=== PATIENT | female | born 1930 | race Caucasian/White ===

== ENCOUNTER 2017-07-21 15:09 | Inpatient (IN) | payer OTHER ==
[2017-07-21] MEDS ORDERED: HYDROmorphONE/DILAUDID 1 MG/ML INJ ONE (15:41)
--- NOTE | 2017-07-21 15:43 | EDPHY ---
H & P Stated Complaint: Fall, L arm deformity Time Seen by Provider: 07/21/17 15:43 - Personal History Current Tetanus/Diphtheria Vaccine: Unsure Current Tetanus Diphtheria and Acellular Pertussis (TDAP): Unsure - Medical/Surgical History Hx Asthma: No Hx Chronic Respiratory Disease: No Hx Diabetes: No Hx Cardiac Disease: No Hx Renal Disease: No Hx Cirrhosis: No Hx Alcoholism: No Hx HIV/AIDS: No Hx Splenectomy or Spleen Trauma: No Other PMH: dementia, high cholesterol - Social History Smoking Status: Never smoked Constitutional: Initial Vital Signs Temperature (C) 36.7 C 07/21/17 15:09 Heart Rate 72 07/21/17 15:09 Respiratory Rate 16 07/21/17 15:09 Blood Pressure 120/73 07/21/17 15:09 O2 Sat (%) 94 07/21/17 15:09 O2 Delivery Mode [Post Non-Rebreather Mask Procedure 2nd] O2 Delivery Mode [Post Non-Rebreather Mask Procedure 1st] O2 Delivery Mode [Procedural Non-Rebreather Mask 2nd] O2 Delivery Mode [Procedural Non-Rebreather Mask 1st] O2 Delivery Mode Room Air O2 (L/minute) [Post Procedure 15 2nd] O2 (L/minute) [Post Procedure 15 1st] O2 (L/minute) [Procedural 2nd] 15 Allergies/Adverse Reactions: No Known Allergies Allergy (Verified 07/21/17 15:19) Home Medications: Medication Instructions Recorded Donepezil HCl 07/21/17 Mirtazapine 07/21/17 Namenda 10 mg 07/21/17 Simvastatin 07/21/17 Zoloft 100mg (*) 07/21/17 Medical Decision Making - Diagnostics Imaging Results: Imaging Impressions Elbow X-Ray 07/21/17 15:52 Impression: Acute intra-articular minimally angulated and displaced distal humerus supracondylar fracture. Hip X-Ray 07/21/17 15:52 Impression: Suspect acute nondisplaced left superior pubic ramus fracture. Comment: Results discussed with Dr. Jalen Zamora. Pelvis CT 07/21/17 16:31 Impression: 1. Nondisplaced fracture of the superior and inferior pubic ramus adjacent to the symphysis on the left. 2. Adjacent hematoma extends into the soft tissues superior to the fractures causing mild compression along the left anterior wall of the bladder. 3. Extensive uncomplicated diverticulosis of the sigmoid colon. Findings discussed with Jalen Zamora MD at 17:04 hour, 07/21/2017. Imaging: Discussed imaging studies w/ call box wirer Radiologist, I viewed and interpreted images myself ED Course/Re-evaluation: CHIEF COMPLAINT: Left arm and left hip injury HISTORY OF PRESENT ILLNESS: The patient is a 86 y/o female with a history of Alzheimer's disease arriving via EMS complaining of severe left elbow and left hip pain secondary to a fall this afternoon. Her daughter at bedside states her hand was underneath a cabinet when she fell. Her hand was stuck under the cabinet as she fell, causing her elbow to twist. She had immediate pain in her left elbow and left hip. Daughter denies head strike or loss of consciousness. No weakness or paresthesias. EMS administered 100mcg IV Fentanyl en route without control of her pain. No anticoagulants. REVIEW OF SYSTEMS: A 10 point review of systems was performed and is negative with the exception of the elements mentioned in the history of present illness. PHYSICAL EXAM: HR, BP, O2 Sat, RR. Temp noted General Appearance: Alert, well hydrated, appropriate, and extremely uncomfortable appearing. Head: Atraumatic without scalp tenderness or obvious injury Eyes: Pupils equal, round, reactive to light and accommodation, EOMI, no trauma , no injection. Ears: Clear bilaterally, no perforation, normal landmarks Nose: Atraumatic, no rhinorrhea, clear. Throat: Mucus membranes moist. Neck: Supple, nontender, no lymphadenopathy. Respiratory: No retractions, no distress, no wheezes, and no accessory muscle use. Lungs are clear to auscultation bilaterally. Cardiovascular: Regular rate and rhythm, no murmurs, rubs, or gallops. Strong left radial pulse. Good capillary refill all extremities. Gastrointestinal: Abdomen is soft, nontender, non-distended, no masses, no rebound, no guarding, no peritoneal signs. Musculoskeletal: Left elbow deformity and severe pain with any ROM, pain with ROM of left hip, pelvis stable without crepitus, no shortening or rotation of leg. Neurological: Alert, appropriate, and interactive. The patient has non-focal cranial nerves, motor, sensory, and cerebellar exam. Skin: No rashes, good turgor, no nodules on palpation. Past medical history: Alzheimer's disease, high cholesterol Past surgical history: Noncontributory Family history: Noncontributory Social history: Lives in [place], here through next Thursday. Daughter at bedside. DIAGNOSTICS/PROCEDURES/CRITICAL CARE TIME: 1644: Procedure: Conscious sedation. Indication: Elbow dislocation reduction The patient is an appropriate candidate to tolerate procedural sedation. The patient's vitals signs and mental status are appropriate. The risks, benefits and alternatives of the sedation were discussed with the patient and daughter. The patient is ASA classification 1. The patient's Mallampati airway score was 1 and the patient did meet the 3-3-2 airway measurements. A time out was completed. The patient was sedated with 40mg IV Dilaudid and 40mg IV Propofol. The patient was monitored with continuous pulse oximetry, clinical appeals specialist and end tidal CO2. There were no complications and no significant hypoxemia. I performed both the sedation and the procedure. The total time I spent at the bedside during the procedural sedation was 20 minutes. The patient was examined after the procedural sedation and has returned to their pre-sedation baseline with normal vital signs and a normal examination. Procedure: Reduction of dislocated elbow fracture Time-out completed immediately before the procedure. IV established. O2 administered. Placed on pulse oximeter and ETCO2 monitor. Neurovascular exam intact pre-procedure. Given 1mg IV Dilaudid, 40mg IV Ketamine, and 40mg IV Propofol for pain and sedation. The left elbow fracture dislocation was reduced using traction and internal rotation. Reassessed post-procedure. Neurovascular status intact-Normal Motor and sensory exam. Exam indicated reduction. Confirmed reduction on X-ray. Splint applied by tech. The procedure was performed by myself, Dr. Zamora. Postreduction left elbow x-ray: displaced angulated distal humerus supracondylar fracture. Pelvis x-ray: possible superior pubic rami fracture Pelvis CT: nondisplaced superior pubic rami fracture DIFFERENTIAL DIAGNOSIS: The differential diagnosis for the patient's trauma included but was not limited to intracranial injury, long bone and pelvic bone fractures, spinal injury, intra-abdominal injury, and intra-thoracic injury. MEDICAL DECISION MAKING: This is an 86 y/o female with a history of dementia who presents with left elbow fracture dislocation and left hip pain secondary to fall. 1mg IV Dilaudid administered immediately for pain. Due to severe pain and obvious dislocation on exam, I procedurally sedated and reduced dislocation prior to imaging. Patient is much more comfortable after relocation, splinting, and pain medication. She remains neurovascularly intact. Pelvis x-ray and subsequent CT confirm nondisplaced superior pubic rami fracture. She is due to fly home to [place] soon, but unfortunately she is unable to use a walker due to the elbow fracture and unable to walk due to the pelvic fracture. Discussed options with the patient and her daughter and they have opted for admission here. 1745: Consulted with Dr. Holguin, surgeon. He accepts admission and requests orthopedic and hospitalists consults as well. Spoke with hospitalist service. Dr. Joseph will consult on patient as needed. Spoke with Dr. Rosenberg, orthopedist. He will consult on patient during admission as needed. - Data Points Medications Given: Discontinued Medications Hydromorphone HCl (Dilaudid) 1 mg IVP EDNOW ONE Stop: 07/21/17 15:46 Last Admin: 07/21/17 15:45 Dose: 1 mg Ketamine HCl (Ketamine) 40 mg IVP EDNOW ONE Stop: 07/21/17 15:54 Last Admin: 07/21/17 15:53 Dose: 40 mg Propofol (Diprivan) 40 mg IVP EDNOW ONE Stop: 07/21/17 15:54 Last Admin: 07/21/17 15:53 Dose: 40 mg Departure - Departure Disposition: [facility] Inpatient Acute Clinical Impression: Fracture of superior pubic ramus Qualifiers: Encounter type: initial encounter Fracture type: closed Laterality: left Qualified Code(s): S32.512A - Fracture of superior rim of left pubis, initial encounter for closed fracture Supracondylar fracture of humerus Qualifiers: Encounter type: initial encounter Fracture type: closed Laterality: left Qualified Code(s): S42.412A - Displaced simple supracondylar fracture without intercondylar fracture of left humerus, initial encounter for closed fracture Condition: Fair Report Scribed for: Jalen Zamora Report Scribed by: Meena Pena Date of Report: 07/21/17 Time of Report: 16:36
[2017-07-21] MEDS ORDERED: HYDROmorphONE/DILAUDID 1 MG/ML INJ IVP ONE (15:45)
[2017-07-21] MEDS ORDERED: PROPOFOL 200 MG/20 ML VIAL ONE (15:50)
[2017-07-21] MEDS ORDERED: KETAMINE 100 MG/10 ML SYR IVP ONE (15:53)
[2017-07-21] MEDS ORDERED: PROPOFOL 200 MG/20 ML VIAL IVP ONE (15:53)
[2017-07-21] MEDS ORDERED: KETAMINE 500 MG/10 ML VIAL ONE (19:19)
[2017-07-21] MEDS ORDERED: ACETAMINOPHEN 325 MG TAB PO PRN (20:12)
[2017-07-21] MEDS ORDERED: ONDANSETRON 4 MG/2 ML VIAL IVP PRN (20:12)
[2017-07-21] MEDS ORDERED: HYDROCODONE/APAP 5/325 TAB PO PRN (20:12)
--- NOTE | 2017-07-21 20:53 | GHP ---
[f rep st] PREOP HISTORY AND PHYSICAL DATE OF ADMISSION: 07/21/2017 CHIEF COMPLAINT: Mechanical fall. HISTORY OF PRESENT ILLNESS: This is a very pleasant 86-year-old female with fairly advanced dementia who was shopping earlier at [employer] with her daughter. It appears that it was witness ed, but the patient turned and tripped, and sustained a mechanical fall from standing. She fell most ly on her left side from what it appears. She did strike her head and subsequently was brought to [facility] emergency department by EMS. In the emergency department, the patient complained of left upper ext remity pain; however, she was protecting her airway. Her breathing was intact, and she has adequate circulation. She subsequently had imaging including a left elbow x-ray, hip x-ray, and a pelvis CT a nd the above injuries were identified including a left acute intra-articular minimally angulated and displaced distal humerus supracondylar fracture. A pelvic CT and hip x-ray which shows a nondisplace d fracture of the superior and inferior pubic rami adjacent to the symphysis on the left, as well as an adjacent hematoma that extends into the soft tissues superior to the fractures causing mild compre ssion along the bladder. She also has diverticulosis, which was noted. At any rate, the patient was attempted to ambulate, and she had significant pain and subsequently warrants admission for pain con trol. On my examination, the patient other than complaining of left extra upper extremity pain is alert and oriented x1. It is unclear as to the mechanism and/or events that led to her injuries and states th at she otherwise feels well. She denies having fevers or chills. She describes the pain as achy and is really unable to characterize it any further than that. PAST MEDICAL HISTORY: Alzheimer dementia, as well as hyperlipidemia. PAST SURGICAL HISTORY: She had a colectomy in the past for diverticular disease, per her daughter's report. FAMILY HISTORY: Noncontributory. SOCIAL HISTORY: She lives with her daughter who has a home both here and in [place]. The daughter d enies any illicit drug use. REVIEW OF SYSTEMS: A full 10-point review was performed and unless stated above, is otherwise negati ve. PHYSICAL EXAMINATION: VITAL SIGNS: Blood pressure 100/60, temperature 36.7, heart rate 75, and she is 94% on 2 L nasal cannula. CONSTITUTIONAL: She is in no apparent distress and appears comfortable . EYES: Her pupils are equal, round, and reactive to light and accommodation. She has anicteric sc lerae and her extraocular movements are intact. EARS, NOSE, MOUTH, AND THROAT: She has moist mucous membranes. Her hearing appears normal. Her ears are normal, and she has no oral mucosal ulcers. C ARDIOVASCULAR: She has a regular rate and rhythm without any murmurs. RESPIRATORY: She has no resp iratory distress. No rales or rhonchi, and she is otherwise clear to auscultation. GI: She has nor moactive bowel sounds. ABDOMEN: Soft, nondistended, nontender. SKIN: Warm. She has an abrasion above her left eye, as well as on her left hand. It is normal colo r without any rashes. MUSCULOSKELETAL: She has full muscle strength. No muscle tenderness, and nor mal joint range of motion. NEUROLOGIC: She is alert and oriented x1, but globally confused. Crania l nerves 2-12 appear intact. She has no weakness or numbness. PSYCHIATRIC: She is interacting appr opriately. She does not appear anxious. She is not encephalopathic, but again fairly confused to th e entire situation which appears to be her baseline per her daughter's report. LYMPH, HEME, IMMUNOLOG IC: No cervical lymphadenopathy and no supraclavicular or groin lymphadenopathy appreciated. MEDICAL DECISION MAKING: Laboratories were not checked. Imaging includes an elbow x-ray, the images of which were personally reviewed by me which shows an acute intra-articular minimally angulated and displaced distal humerus fracture and a pelvis CT, again the images of which were personally reviewed , which shows a nondisplaced fracture of the superior and inferior pubic rami on the left side with a n adjacent hematoma. ASSESSMENT AND PLAN: An 86-year-old female with fairly advanced Alzheimer's dementia, status post me chanical fall, not on anticoagulation with the above injuries. The patient will be subsequently admi tted to the trauma service for pain control with physical and occupational therapy to help her ambula te. I have asked both the medicine and orthopedic services to consult on her, given her fractures an d her medical status. I anticipate she will be here a couple of nights working on getting back on he r feet, stable. The plan will be to send her back to her daughter's home, barring the need for any acute inpatient re habilitation and/or inpatient physical therapy. /[id number]/MODL
[2017-07-21] MEDS: DONEPEZIL HCL 5 MG TAB PO SCH (22:50)
[2017-07-21] MEDS: MIRTAZAPINE 15 MG TAB PO SCH (22:50)
[2017-07-21] MEDS: IBUPROFEN 600 MG TAB PO SCH (22:53)
[2017-07-21] MEDS: DOCUSATE SODIUM 100 MG CAP PO SCH (22:54)
--- NOTE | 2017-07-22 00:43 | PDGENHP ---
History and Physical - Chief Complaint Fall - History of Present Illness Date of consult: 07/21/17 Reason for consult: Management of medical comorbidities 86 yo F w/ Alzheimer's dementia presents after witnessed mechanical fall. Patient was with daughter shopping today when she fell and sustained fractures to her pelvis and L humerus. She was admitted by the trauma service who requested the hospitalist service follow along for management of medical comorbidities. Patient herself is currently A&Ox1 and denies any complaints. She believes it is currently 1938. Per review of her medication list she appears to have few medical issues under treatment at this point including dementia, depression, and hyperlipidemia. History Information - Allergies/Home Medication List Allergies/Adverse Reactions: No Known Allergies Allergy (Verified 07/21/17 15:19) Home Medications: Aspirin [Aspirin 81mg (*)] 81 mg PO DAILY 07/21/17 [Last Taken 07/20/17] Docusate Sodium [Colace 100 MG (*)] 100 mg PO HS 07/21/17 [Last Taken 07/20/17] Donepezil HCl [Aricept] 10 mg PO HS 07/21/17 [Last Taken 07/20/17] Memantine HCl [Namenda Xr] 28 mg PO DAILY 07/21/17 [Last Taken 07/21/17] Mirtazapine [Remeron] 15 mg PO HS 07/21/17 [Last Taken 07/20/17] Sertraline HCl [Zoloft 100mg (*)] 150 mg PO DAILY 07/21/17 [Last Taken 07/21/17] Simvastatin [Zocor] 40 mg PO HS 07/21/17 [Last Taken 07/20/17] I have personally reviewed and updated: family history, medical history - Past Medical History dementia, hyperlipidemia - Family History Positive for: cancer - Social History Smoking Status: Never smoked Review of Systems Review of Systems: ROS: 10pt was reviewed & negative except for what was stated in HPI & below Physical Exam Physical Exam: Temp Pulse Resp BP Pulse Ox 36.7 C 82 16 103/57 L 95 07/21/17 23:02 07/21/17 23:06 07/21/17 23:06 07/21/17 23:06 07/21/17 23:06 O2 (L/minute) 2 Constitutional: no apparent distress, not in pain Eyes: PERRL, EOMI Ears, Nose, Mouth, Throat: moist mucous membranes, no oral mucosal ulcers Cardiovascular: regular rate and rhythym, systolic murmur Respiratory: no respiratory distress, clear to auscultation Gastrointestinal: normoactive bowel sounds, soft, non-tender abdomen Skin: warm, normal color Musculoskeletal: other (L arm in sling) Neurologic: other (A&Ox1, interacting appropriately but with very limited memory ) Psychiatric: interacting appropriately, not anxious Lab Data & Imaging Review Imaging Review: Superior and inferior pubic ramus fractures with adjacent hematoma seen on CT. L arm XR w/ distal humerus supracondylar fracture. Assessment & Plan Assessment: 86 yo F w/ Alzheimer's dementia admitted after fall and subsequent humerus and pubic fractures. Plan: 1. L distal humerus fracture - As a result of mechanical fall. Arm currently in sling, pain is well controlled at this time. - Agree with orthopedic consult - Noting advanced dementia and risk for superimposed delirium, will change pain management to APAP 1g TID scheduled + Oxycodone 2.5 - 5 mg q4h PRN for now; increase as necessary. 2. Superior and inferior pubic ramus fractures - Pain control, PT/OT evaluations. Will d/c LMWH and proceed with SCDs only for prophylaxis noting associated hematoma. Will also hold ASA noting limited benefit in primary prevention at this point. 3. Alzheimer's dementia - This seems fairly advanced from my evaluation, patient at significant risk for superimposed delirium noting acute pain and need for centrally acting medications. - Continue home donepezil and memantine to avoid withdrawal - Limit centrally acting meds as possible Thank you for this consult, the hospitalist service will follow along.
[2017-07-22] MEDS: IBUPROFEN 600 MG TAB PO SCH ×3 (06:19→21:59)
--- NOTE | 2017-07-22 08:09 | GCON ---
[f rep st] CONSULTATION ORTHOPEDIC CONSULTATION DATE OF CONSULTATION: 07/22/2017 REASON FOR CONSULTATION: 1. Left elbow fracture. 2. Pubic rami fractures on the left. HISTORY: The patient is a very pleasant 86-year-old female, who had a fall earlier yesterday while s hopping, landing directly on the left side of her body. She was brought to the emergency department. X-rays and CT scan were obtained of the hip and pelvis, x-rays of the elbow. I was consulted to se kristin lagunas. She is admitted to both Trauma service and Medicine service. She does have fairly advanced d ementia and it does sound like her daughter is involved with her care and she lives with her daughter . They split their time between here and [place]. PRIOR MEDICAL HISTORY: High cholesterol and dementia. SOCIAL HISTORY: Again lives with her daughter here. Does not smoke or drink alcohol. REVIEW OF SYSTEMS: No shortness of breath or chest pain. She does have mostly left elbow and left h ip pain. PHYSICAL EXAM: VITAL SIGNS: She is cooperative, answers questions appropriately. VITAL SIGNS: Her vital signs this morning, blood pressure is 137/65, heart rate 60, respiratory rate 17, oxygen satur ation is 95% on 2 L. EXTREMITIES: She is in a sling with a posterior splint on the left elbow. She is moving her fingers well. Hand is well perfused and warm. Examination the left hip: She is tend er over the greater trochanter. Near full range of motion of the hip without much discomfort. Altho ugh internal rotation does elicit a little groin pain. Leg lengths are equal. Motor strength at the foot and ankle is 5/5. 1+ dorsalis pedis and posterior tibial pulses. IMAGING: X-rays taken last night in the emergency department. Four views of the elbow show a minima lly displaced supracondylar humeral fracture. The medial condyle has been fractured and displaced. Bone quality appears okay. Alignment is satisfactory otherwise. Plain imaging and CT of the pelvis are also reviewed, which shows nondisplaced superior inferior pubic rami fractures on the left. Join t space is well maintained in the hip. ASSESSMENT: 1. Minimally displaced supracondylar humeral fracture, left elbow. 2. Superior inferior pubic rami fractures, left. PLAN: As far as the pelvis is concerned, she can be weightbearing as tolerated as pain permits. I d o not want her to bear any weight through the left arm. I think we will be able to treat this elbow injury non operatively. My plan will be a sling for 10-14 days. Repeat x-rays at my office. The matthew camejo has improved, alignment remains stable. She will be able to be placed into a long-arm cylinde r cast. For the short term, she should keep the splint and sling on a full-time. /[id number]/MODL
--- NOTE | 2017-07-22 08:15 | TRAUMAPN ---
Assessment/Plan: 86yo F s/p fall - L elbow fx, L superior and inferior pubic rami fx Will need SNF after discharge airline excuse note for patient and daughter PT, OT Case management to assist with BBB claim and SNF placement Ortho management of VIVIANE S: pain in her left arm, doesn't feel any pain in her pelvis unless tries to move her leg. O: Objective: Vital Signs Temp Pulse Resp BP Pulse Ox 36.4 C 64 16 104/54 L 95 07/22/17 07:50 07/22/17 07:50 07/22/17 07:50 07/22/17 07:50 07/22/17 07:50 07/21/17 07/22/17 07/23/17 05:59 05:59 05:59 Intake Total 600 Output Total 300 Balance 300 Tertiary Exam performed and no additional injuries noted Physical Exam - Physical Exam General Appearance: WD/WN, alert, no apparent distress EENT: PERRL/EOMI, normal ENT inspection, No scleral icterus (R), No scleral icterus (L), No hearing deficit Neck: non-tender, full range of motion, supple Respiratory: chest non-tender, lungs clear, normal breath sounds Cardiac/Chest: normal peripheral pulses, regular rate, rhythm Abdomen: normal bowel sounds, non-tender, soft Pelvic Exam: other (non tender to palpation but does not want to rotate left leg ) Back: Normal inspection Skin: normal color, warm/dry Extremities: other (left arm in splint) Neuro/Psych: no motor/sensory deficits, alert, normal mood/affect
[2017-07-22] MEDS: SERTRALINE HCL 100 MG TAB PO SCH (08:58)
[2017-07-22] MEDS: ACETAMINOPHEN 500 MG TAB PO SCH ×2 (08:59→16:07)
[2017-07-22] MEDS ORDERED: ASPIRIN 81 MG CHEWABLE TAB PO SCH (09:00)
[2017-07-22] MEDS ORDERED: Memantine Hcl [Namenda Xr] 28 MG PO SCH (09:00)
[2017-07-22] MEDS ORDERED: ENOXAPARIN 40 MG/0.4 ML SYR SC SCH (09:00)
--- NOTE | 2017-07-22 12:21 | HOSPPROG ---
Hospitalist Progress Note Assessment/Plan: 86 yo F w/ Alzheimer's dementia admitted after fall and subsequent humerus and pubic fractures. Today is my first encounter, chart reviewed. * Left distal humerus fx -cont supportive measures *Superior and inferior pubic ramus fx -asa on hold *gait instability -will go to rehab *Alzheimer's dementia -Continue home donepezil and memantine *Plan: to SNF soon Subjective: Niurka is happy, has no complaints. Objective: Vital Signs Temp Pulse Resp BP Pulse Ox 37.0 C 68 16 99/50 L 93 07/22/17 12:00 07/22/17 12:00 07/22/17 12:00 07/22/17 12:00 07/22/17 12:00 07/21/17 07/22/17 07/23/17 05:59 05:59 05:59 Intake Total 600 Output Total 300 Balance 300 - Physical Exam Constitutional: no apparent distress, appears nourished, not in pain, uncomfortable Eyes: PERRL Ears, Nose, Mouth, Throat: hearing normal Cardiovascular: no murmur, rub, or gallop Respiratory: no respiratory distress Gastrointestinal: normoactive bowel sounds Musculoskeletal: generalized weakness, other (left hand w good cms) Neurologic: other (alert) Psychiatric: poor insight, poor judgement, poor memory ICD10 Worksheet Patient Problems: Problems Problem Status Onset Fracture of superior pubic ramus Acute Supracondylar fracture of humerus Acute
[2017-07-22] MEDS ORDERED: KETAMINE 200 MG/20 ML VIAL ONE (15:59)
--- NOTE | 2017-07-22 16:28 | ASMTCMCOM ---
CM Note CM Note Notes: Patient admitted after a mechanical fall in which she sustained a pubic ramus and a humeral fracture, both inoperable. I spoke with her daughter Omayra about discharge planning; patient has fairly advanced Dementia and lives with Omayra. The family splits their time between [place] and [place], so they would like patient to go to SNF in [place] upon discharge. I sent a referral to [facility] who accepts patient. Omayra plans to drive her to the facility. Omayra also requested an airline excuse note, but according to [employer], she has to contact them first before hospital composes letter. We will follow up as able on this. Current CM Discharge plan: [facility] Date Signed: 07/22/2017 04:28 PM Electronically Signed By:Olivia Harrison RN
[2017-07-22] MEDS: oxyCODONE IR 5 MG TAB PO PRN (20:23)
[2017-07-22] MEDS: MIRTAZAPINE 15 MG TAB PO SCH (21:56)
[2017-07-22] MEDS: DOCUSATE SODIUM 100 MG CAP PO SCH (21:56)
[2017-07-22] MEDS: MEMANTINE HCL 5 MG TAB PO SCH (21:56)
[2017-07-22] MEDS: ATORVASTATIN CALCIUM 20 MG TAB PO SCH (21:57)
[2017-07-22] MEDS: DONEPEZIL HCL 5 MG TAB PO SCH (21:57)
[2017-07-23] MEDS: ACETAMINOPHEN 500 MG TAB PO SCH ×3 (00:36→15:19)
[2017-07-23] MEDS: oxyCODONE IR 5 MG TAB PO PRN ×5 (00:37→19:20)
[2017-07-23 05:31] LABS: % IMMATURE GRANULYOCYTES 0.3 % (0.0-1.1); ABSOLUTE IMMATURE GRANULOCYTES 0.03 10^3/uL (0.00-0.10); ADD DIFF? NO; ADD MORPH? NO; ADD SCAN? NO; ATYPICAL LYMPHOCYTE FLAG 0 (0-99); FRAGMENT RBC FLAG 0 (0-99); HEMATOCRIT 37.7 % (38.0-47.0); HEMOGLOBIN 12.4 g/dL (12.6-16.3); LEFT SHIFT FLG 0 (0-99); LIPEMIA HEMOLYSIS FLAG 80 (0-99); MEAN CELL HEMOGLOBIN 31.6 pg (27.9-34.1); MEAN CELL HEMOGLOBIN CONCENTR. 32.9 g/dL (32.4-36.7); MEAN CELL VOLUME 95.9 fL (81.5-99.8); MEAN PLATELET VOLUME 9.6 fL (8.7-11.7); PLATELET CLUMPS FLAG 0 (0-99); PLATELET COUNT 159 10^3/uL (150-400); RED BLOOD CELL COUNT 3.93 10^6/uL (4.18-5.33); RED CELL DISTRIBUTION WIDTH 14.6 % (11.5-15.2)
[2017-07-23] MEDS: IBUPROFEN 600 MG TAB PO SCH (05:34)
[2017-07-23 05:45] LABS: ANION GAP 11 mEq/L (8-16); CALCIUM 8.5 mg/dL (8.5-10.4); CARBON DIOXIDE 27 mEq/l (22-31); CHLORIDE 106 mEq/L (97-110); CREATININE 2.3 mg/dL (0.6-1.0); GLOMERULAR FILTRATION RATE 20; GLUCOSE 107 mg/dL (70-100); POTASSIUM 4.9 mEq/L (3.5-5.2); SODIUM 144 mEq/L (134-144)
[2017-07-23] MEDS: MEMANTINE HCL 5 MG TAB PO SCH ×2 (08:06→20:59)
[2017-07-23] MEDS: SERTRALINE HCL 100 MG TAB PO SCH (08:06)
--- NOTE | 2017-07-23 08:29 | HOSPPROG ---
Hospitalist Progress Note Assessment/Plan: 86 yo F w/ Alzheimer's dementia admitted after fall and subsequent humerus and pubic fractures. * Left distal humerus fx -cont supportive measures *Superior and inferior pubic ramus fx -asa on hold *gait instability -will go to rehab *Alzheimer's dementia -Continue home donepezil and memantine * renal insufficiency -last creat in June, was 2.3, she is at her baseline. Will DC NSAIDs and avoid any nephrotoxins medications *Plan: to SNF soon. Likely tomorrow. Will give her some fluids, per daughter and nursing staff, she isn't drinking much. Subjective: Niurka says she has some pain when getting oob. Objective: Vital Signs Temp Pulse Resp BP Pulse Ox 36.6 C 65 16 106/51 L 96 07/23/17 07:48 07/23/17 07:48 07/23/17 07:48 07/23/17 07:48 07/23/17 07:48 Laboratory Results 07/23/17 05:25 07/23/17 05:25 07/22/17 07/23/17 07/24/17 05:59 05:59 05:59 Intake Total 600 500 Output Total 300 300 Balance 300 200 - Physical Exam Constitutional: no apparent distress, appears nourished, not in pain Eyes: PERRL Ears, Nose, Mouth, Throat: hearing normal Cardiovascular: regular rate and rhythym Respiratory: no respiratory distress Gastrointestinal: normoactive bowel sounds Skin: other (left hand w good CMS) Musculoskeletal: generalized weakness Neurologic: other (alert and oriented to her daughter and herself) Psychiatric: interacting appropriately, not anxious, poor memory ICD10 Worksheet Patient Problems: Problems Problem Status Onset Fracture of superior pubic ramus Acute Supracondylar fracture of humerus Acute
[2017-07-23] MEDS ORDERED: NS 500 ML IV ONE (09:56)
--- NOTE | 2017-07-23 10:54 | SOAPPROG ---
SOAP Progress Note Assessment/Plan: Assessment: 86-year-old female status post fall off shopping her [employer] resulting in left rami, left upper extremity fractures all non operative, Alzheimer's disease, renal insufficiency-undetermined if chronic Patient complaining of pain below left knee, complaint multiple times during visit today, daughter thinks most likely pain just from physical therapy yesterday. Physical exam Awake comfortable follow simple motor commands Chest CTA bilaterally Abdomen soft nontender Extremities left upper extremity in a sling normal radius pulse to palpation no difficulty moving all fingers including doing thumbs-up on the left upper extremity Inspection of the left lower extremity yields no abnormalities, full range of motion of left knee and left ankle without difficulty. Plan: Left tibia-fibula x-ray although suspicion very low for fracture, suspected is referred pain from the left rami fractures Patient is to go to SNF in [place], plan is tentatively for tomorrow, Thursday. 07/23/17 10:51 Objective: Vital Signs Temp Pulse Resp BP Pulse Ox 36.6 C 65 16 106/51 L 96 07/23/17 07:48 07/23/17 07:48 07/23/17 07:48 07/23/17 07:48 07/23/17 07:48 Laboratory Results 07/23/17 05:25 07/23/17 05:25 07/22/17 07/23/17 07/24/17 05:59 05:59 05:59 Intake Total 600 500 Output Total 300 300 Balance 300 200 ICD10 Worksheet Patient Problems: Problems Problem Status Onset Fracture of superior pubic ramus Acute Supracondylar fracture of humerus Acute
[2017-07-23 15:43] VITALS: RESP 16
[2017-07-23] MEDS: DONEPEZIL HCL 5 MG TAB PO SCH (20:59)
[2017-07-23] MEDS: ATORVASTATIN CALCIUM 20 MG TAB PO SCH (20:59)
[2017-07-23] MEDS: MIRTAZAPINE 15 MG TAB PO SCH (20:59)
[2017-07-23] MEDS: DOCUSATE SODIUM 100 MG CAP PO SCH (20:59)
[2017-07-24] MEDS: ACETAMINOPHEN 500 MG TAB PO SCH ×2 (00:02→08:12)
[2017-07-24] MEDS: oxyCODONE IR 5 MG TAB PO PRN ×3 (00:03→11:51)
[2017-07-24 07:51] VITALS: BP 123/55; PULSE 79; TEMP 99; O2SAT 93
--- NOTE | 2017-07-24 07:52 | HOSPPROG ---
Hospitalist Progress Note Assessment/Plan: 86 yo F w/ Alzheimer's dementia admitted after fall and subsequent humerus and pubic fractures. * Left distal humerus fx -cont supportive measures *Superior and inferior pubic ramus fx -asa on hold *gait instability -will go to rehab *Alzheimer's dementia -Continue home donepezil and memantine * renal insufficiency -last creat in June, was 2.3, she is at her baseline. Will DC NSAIDs and avoid any nephrotoxins medications *Plan: dc to rehab today Subjective: Niurka is more tired today. Objective: Vital Signs Temp Pulse Resp BP Pulse Ox 37.2 C 79 16 123/55 H 93 07/24/17 07:51 07/24/17 07:51 07/24/17 07:51 07/24/17 07:51 07/24/17 07:51 Laboratory Results 07/23/17 05:25 07/23/17 05:25 07/23/17 07/24/17 07/25/17 05:59 05:59 05:59 Intake Total 500 1850 Output Total 300 800 Balance 200 1050 - Physical Exam Constitutional: uncomfortable Eyes: PERRL Ears, Nose, Mouth, Throat: hearing normal Respiratory: no respiratory distress Skin: warm Musculoskeletal: generalized weakness Psychiatric: interacting appropriately, poor memory ICD10 Worksheet Patient Problems: Problems Problem Status Onset Fracture of superior pubic ramus Acute Supracondylar fracture of humerus Acute
[2017-07-24] MEDS: SERTRALINE HCL 100 MG TAB PO SCH (08:11)
[2017-07-24] MEDS: MEMANTINE HCL 5 MG TAB PO SCH (08:14)
--- NOTE | 2017-07-24 09:34 | PDIAF ---
- Diagnosis Diagnosis: left elbow fx, pubic rami fx, dementia Code Status: Full Code - Medication Management Discharge Medications: Medications to Continue on Transfer Docusate Sodium [Colace 100 MG (*)] 100 mg PO HS 07/21/17 [Last Taken 07/20/17] Donepezil HCl [Aricept] 10 mg PO HS 07/21/17 [Last Taken 07/20/17] Memantine HCl [Namenda Xr] 28 mg PO DAILY 07/21/17 [Last Taken 07/21/17] Mirtazapine [Remeron] 15 mg PO HS 07/21/17 [Last Taken 07/20/17] Sertraline HCl [Zoloft 100mg (*)] 150 mg PO DAILY 07/21/17 [Last Taken 07/21/17] Simvastatin [Zocor] 40 mg PO HS 07/21/17 [Last Taken 07/20/17] Acetaminophen [Tylenol ES 500 mg (*)] 1,000 mg PO Q8H tab 07/24/17 [Last Taken Unknown] oxyCODONE IR [Oxycodone Ir (*)] 2.5 - 5 mg PO Q4HRS PRN #15 tab 07/24/17 [Last Taken Unknown] Discharge Medications: Refer to the Discharge Home Medication list for PRN reason. - Orders Services needed: Physical Therapy, Occupational Therapy Diet Recommendation: no restrictions on diet Diet Texture: Regular Texture Diet Activity/Weight Bearing Restrictions: in regards to pelvis, WBAT. No weight bearing w left arm. Wear the sling for next 10 days. She needs repeat xrays of left arm in 10 days for further eval. If alignment remains stable, she will need to be placed into a long-arm cylinder cast. Additional: aspirin has been on hold/ resume in a week if she will not be having any surgical procedures. - Labs/Radiology BMP Date: 07/20/17 - Follow Up Care Current Providers and Referrals: SAGE AVENDANO MD [Other] - As per Instructions Jerson Rosenberg MD [Medical Doctor] -
--- NOTE | 2017-07-24 12:15 | GDS ---
[f rep st] DISCHARGE SUMMARY DISCHARGE DIAGNOSES: 1. Left distal humerus fracture. 2. Nondisplaced superior and inferior pubic ramus fracture. 3. Gait instability. 4. Alzheimer dementia. 5. Renal insufficiency. CONSULTATIONS: 1. Dr. Frankie Holguin. 2. Dr. Jerson Rosenberg. HISTORY OF PRESENT ILLNESS AND HOSPITAL COURSE: Briefly, the patient is a very sweet, 86-year-old female, who sustained a fall while shopping. She landed directly on the left side of her body. She was brought to the emergency room. X-rays and CT scan were obtained of her hip, pelvis, and elbows. She was initially admitted to the Trauma Services. She was seen and evaluated by Orthopedics, and noted that she had a minimally displaced supracondylar humerus fracture of the left elbow, as well as a superior pubic ramus fracture of the left. She will be discharged to a intermediate facility in the [facility] , and further follow up with Orthopedics. HOSPITAL COURSE PER PROBLEM: 1. Left distal humerus fracture. At this time, supportive measures. She is in a splint as well as a sling, and doing well with this. 2. Superior and inferior pubic ramus fracture. Aspirin was placed on hold. They can resume this in a week, as long she will not be having any further surgery. 3. Gait instability. To go to rehab for strengthening. 4. Alzheimer dementia. She is on donepezil and memantine, overall stable. 5. Renal insufficiency. Her creatinine was 2.3. This was her baseline in June of this year. DISCHARGE CONDITION: Stable. Blood pressure is 123/55, O2 sats on 1 L 93%, respiratory rate is 16, pulse is 79, temperature is 37.2 Celsius. MEDICATIONS AT DISCHARGE: Please see the EMR. DISCHARGE INSTRUCTIONS: 1. She needs further imaging of her left elbow. Will need repeat x-rays in approximately a week. She may either need surgery, but more likely she needs a long-arm cylinder cast. 2. Weightbearing to her lower extremities as tolerated. 3. If she develops fever, chills, chest pain, or shortness of breath, return to the ER. Greater than 30 minutes discharging and coordinating the patient's care. /[id number]/MODL MTDD
--- NOTE | 2017-07-24 12:49 | ASDISCHSUM ---
Discharge Information Plan Status:SNF Medically Cleared to Leave: Discharge Date:07/24/2017 12:17 PM D/C Disposition:Snf Facility ADT D/C Disposition:Snf Facility Projected Discharge Date:07/24/2017 11:00 AM Transportation at D/C:Family Discharge Delay Reason: Follow-Up Date:07/24/2017 11:00 AM Discharge Slot: Final Diagnosis: Placement Information Referral Type:*Long-Term/SNF Referral ID:[id number] Provider Name:[facility] Address 1:[address] Address 2: City:[place] Selection Factors: State:[place] Patient Contact Information Contact Name:SANDRA Relationship:Daughter Address:[address] Work Phone: City:[place] Alternate Phone: [facility] Code:[place] [id number] Email: Financial Information Financial Class: Primary Plan Desc:MEDICARE INPATIENT Primary Plan Number:[id number] Secondary Plan Desc:[facility] Secondary Plan Number:[id number] Assessment Information [facility] CM Progress Note CM Note CM Note Notes: Patient admitted after a mechanical fall in which she sustained a pubic ramus and a humeral fracture, both inoperable. I spoke with her daughter Omayra about discharge planning; patient has fairly advanced Dementia and lives with Omayra. The family splits their time between [place] and [place], so they would like patient to go to SNF in [place] upon discharge. I sent a referral to [facility]" [facility] who accepts patientElsa Cutler plans to drive her to the facility. Omayra also requested an airline excuse note, but according to [employer], she has to contact them first before hospital composes letter. We will follow up as able on this. Current CM Discharge plan: [facility]" [facility] Date Signed: 07/22/2017 04:28 PM Electronically Signed By:Olivia Harrison RN [facility] CM Progress Note CM Note CM Note Notes: Pt medically stable for d/c to [facility], dgr will transport. Orders, [employer] list triggered PASRR which was received by OBRA coordinator sent in [employer], and Med A Cert faxed. VIOLETA to call report [phone]. Date Signed: 07/24/2017 12:49 PM Electronically Signed By:MARTELL Rodriguez Intervention Information
--- NOTE | 2017-07-24 12:49 | ASMTCMCOM ---
CM Note CM Note Notes: Pt medically stable for d/c to [facility], dghtr will transport. Orders, [employer] list triggered PASRR which was received by OBRA coordinator sent in [employer], and Med A Cert faxed. RN to call report [phone]. Date Signed: 07/24/2017 12:49 PM Electronically Signed By:MARTELL Rodriguez
--- NOTE | 2017-07-24 15:16 | ASMTCMCOM ---
CM Note CM Note Notes: Pt dghtr provided airline excuse today. Date Signed: 07/24/2017 03:16 PM Electronically Signed By:MARTELL Rodriguez
--- NOTE | 2017-07-24 17:37 | TRAUMAPN ---
Assessment/Plan: 86yo F s/p fall - L elbow fx, L superior and inferior pubic rami fx Pain controlled Weight bearing restrictions per ortho PT, OT Dispo: d/c to SNF in [place] today. will need f/u with orthopedic surgery in [place]. Discussed c Dr. Jiang. S: does not feel any pain this morning. is very frustrated because she couldn't get a nurse or aide to help her adjust her oxygen. O: laying in bed, comfortable, NAD No increased WOB Able to move both LE with min discomfort LUE in sling Objective: Vital Signs Temp Pulse Resp BP Pulse Ox 37.2 C 79 16 123/55 H 93 07/24/17 07:51 07/24/17 07:51 07/24/17 07:51 07/24/17 07:51 07/24/17 07:51 Laboratory Results 07/23/17 05:25 07/23/17 05:25 07/23/17 07/24/17 07/25/17 05:59 05:59 05:59 Intake Total 500 1850 380 Output Total 300 800 200 Balance 200 1050 180
== END 2017-07-24 12:17 | DRG 563 ==
LOC: F3N 18:46
PROVIDERS: ADMIT Surgery; ATTEND Surgery
PROC: 0PSGXZZ Reposition Left Humeral Shaft, External Approach (ICD-10-PCS; principal; 2017-07-21)
DX: S42.412A Displaced simple supracondylar fracture without intercondylar fracture of left humerus, initial encounter for closed fracture (principal); S32.512A Fracture of superior rim of left pubis, initial encounter for closed fracture; R26.89 Other abnormalities of gait and mobility; G30.9 Alzheimer's disease, unspecified; F02.80 Dementia in other diseases classified elsewhere, unspecified severity, without behavioral disturbance, psychotic disturbance, mood disturbance, and anxiety; N28.9 Disorder of kidney and ureter, unspecified; E78.00 Pure hypercholesterolemia, unspecified; W01.0XXA Fall on same level from slipping, tripping and stumbling without subsequent striking against object, initial encounter; Y92.513 Shop (commercial) as the place of occurrence of the external cause
CPT/HCPCS: 92523-GN; 97162-GP; 97166-GO; 97530-GP; 97535-GO; A4565; G8978-GP-CM; G8979-GP-CK; G8980-GP-CL; G8987-GO-CL; G8988-GO-CJ; G9168-GN-CL; G9169-GN-CL; G9170-GN-CL; J1170; J2704